=== PATIENT | female | born 1965 | race Caucasian/White ===

== ENCOUNTER → 2017-11-20 10:37 | Outpatient (CLI) | payer OTHER, SELFPAY ==
--- NOTE | 2017-11-20 10:40 | STE_ITS ---
Reason For Study: ATYPICAL CHEST PAIN Stress Results Protocol: Jairon Protocol Maximum Predicted HR: 168 bpm Target HR: 143 bpm% Max imum Predicted HR: 96 % DurationHeart Rate Stage (mm:ss) (bpm) BP BASELINE 56 108/70 STAGE 1 3:00 11 4 120/82 STAGE 2 3:00 12 9 140/80 STAGE 3 3:00 16 2 160/82 RECOVERY 79 98/64 Stress Duration: 9:00 mm:ss Maximum Stress HR: 162 bpm Baseline Echocardiogram Findings The estimated ejection fraction is 60 %. Stress Echo Wall motion Data Resting WMIntermediate WMStress WM Resting Wall Motion Wall Motion Stress No regional wall motion No regional wall motion abnormalities noted. abnormalities noted. EKG Data Normal intervals are noted. The patient exercised according to the regular Jairon protocol for a total duration of 9:00. The maximum heart rate attained was 162 beats per minute. This was 96% of maximum predicted heart rate. The patient exercised into stage 3 of the Jairon protocol. During stress, there were no ST or T wave changes noted to suggest ischemia. No clinical angina was noted. No arrhythmias noted. Interpretation Summary Normal adequate treadmill echocardiogram. Negative for ischemia by EKG and echocardiographic criteria. No anginal symptoms noted. No arrhythmias noted. Average exercise capacity for age. Normal blood pressure response to exercise. Test terminated due to the attainment of target heart rate. No complications. Final LVEF of 70%. Ordering Physician: Clif Valverde Referring Physician: Clif Valverde Performed By: Malgorzata Darden, DOUG, RVT
--- NOTE | 2017-11-20 17:09 | STRESSREP ---
Stress Test Report Normal EKG report: Resting EKG: Normal sinus rhythm,/sinus bradycardia, normal axis, normal intervals, no evidence of previous myocardial infarction. Treadmill EKG patient exercised according to a Jairon protocol for 9 minutes and 1 second achieving a maximum workload of 10.4 0 METS. Resting heart rate was initially 57 beats a minute and jelly to maximum 162 beats a minute which represents 96% of the maximal age-predicted heart rate. Resting blood pressure was 108/70, and jelly to maximum 160/82. Test was terminated due to the attainment of target heart rate. During exercise patient's heart rate increased as expected. She had no dynamic EKG changes to suggest ischemia. No arrhythmias noted. Conclusions: Normal adequate treadmill EKG. Negative for ischemia by EKG criteria. No anginal symptoms noted. No arrhythmias noted. Average exercise capacity for age. Normal blood pressure response to exercise. Test terminated due to the attainment of target heart rate. No complications.
== END ==
PROVIDERS: Family Provider Family Medicine; PCP Family Medicine; Visit Provider Family Medicine
DX: R07.89 Other chest pain (principal)
CPT/HCPCS: 93017; 93350

== ENCOUNTER 2018-03-01 19:27 | Emergency (ER) | payer OTHER, SELFPAY ==
[2018-03-01 19:28] VITALS: BP 133/77; PULSE 91; RESP 16; TEMP 36.4; O2SAT 96; BMI 30.1
--- NOTE | 2018-03-01 19:54 | ED.DCSUM_ITS ---
- ER Visit Summary Date of Service: 03/01/18 Chief Complaint: Nausea and vomiting History of Present Illness: The patient is a 53 F with no medical problems who presents for nausea and vomiting since yesterday. Patient states she cooked a pesto pizza that her and her daughter ate. During the night both of them became ill, her daughter having diarrhea and vomiting, and the patient having vomiting only. Patient states her daughter is feeling better, however patient' s symptoms have not subsided at all. She is having frequent emesis, myalgias, headache, and diffuse abdominal pain. She denies any diarrhea or bowel movement since symptom onset, but states she does not normally have a bowel movement every day. She is passing flatus. Denies fever, chest pain, shortness of breath, cough, congestion. Son returned from [place] last Sunday and had vomiting and diarrhea illness that resolved shortly after he returned. Physical Examination: Vital signs: afebrile, hemodynamically stable, no hypoxia on room air General: well nourished, well developed, sitting in bed in no distress Skin: warm, dry, no rash, no pallor, no jaundice HEENT: normocephalic and atraumatic; PERRL, EOMI, moist mucous membranes Cardiovascular: regular rate and rhythm without murmurs, no peripheral edema, 2 + pulses all distal extremities Respiratory: No increased work of breathing, lungs are clear to auscultation bilaterally, no rales, rhonchi or wheezing Abdominal: Abdomen is soft, nontender with normoactive bowel sounds, no guarding or rebound, no masses MSK: Moves all extremities, no deformities, normal strength Neuro: Awake and alert, oriented ?4. No facial droop, sensation and motor function intact and symmetric Test Results: Abnormal Lab Results 03/01/18 03/01/18 03/01/18 20:00 20:00 20:00 WBC 6.3 RBC 4.93 Hgb 14.3 Hct 43.7 MCV 88.6 MCH 29.0 MCHC 32.7 RDW 13.7 RDW Differential 44.0 H Plt Count 108 L MPV 10.5 Immature Gran % (Auto) 0.300 Neut % (Auto) 91.6 H Lymph % (Auto) 3.8 L [place] % (Auto) 3.8 Eos % (Auto) 0.3 Baso % (Auto) 0.2 Absolute Neuts (auto) 5.8 Absolute Lymphs (auto) 0.24 L Total Counted Not Reportable Differential Comment SEE COMMENT Platelet Estimate SLT DEC Anisocytosis RARE Sodium 140 Potassium 3.0 L Chloride 107 Carbon Dioxide 24.0 Anion Gap 9 BUN 9 Creatinine 0.82 Estim Creat Clear Calc 65.63 Est GFR (MDRD) Af Amer 93 Est GFR (MDRD) Non-Af 77 BUN/Creatinine Ratio 10.9 Glucose 119 H Lactic Acid 1.2 Calcium 8.2 L Total Bilirubin 0.50 AST 17 ALT 28 Alkaline Phosphatase 43 L Total Protein 7.2 Albumin 3.7 Globulin 3.5 Albumin/Globulin Ratio 1.1 Lipase 101 Urine Color Urine Clarity Urine pH Ur Specific [place] Urine Protein Urine Glucose (UA) Urine Ketones Urine Occult Blood Urine Nitrite Urine Bilirubin Urine Urobilinogen Ur Leukocyte Esterase Urine RBC Urine WBC Ur Squamous Epith Cells Urine Bacteria Urine Mucus 03/01/18 20:55 WBC RBC Hgb Hct MCV MCH MCHC RDW RDW Differential Plt Count MPV Immature Gran % (Auto) Neut % (Auto) Lymph % (Auto) [place] % (Auto) Eos % (Auto) Baso % (Auto) Absolute Neuts (auto) Absolute Lymphs (auto) Total Counted Differential Comment Platelet Estimate Anisocytosis Sodium Potassium Chloride Carbon Dioxide Anion Gap BUN Creatinine Estim Creat Clear Calc Est GFR (MDRD) Af Amer Est GFR (MDRD) Non-Af BUN/Creatinine Ratio Glucose Lactic Acid Calcium Total Bilirubin AST ALT Alkaline Phosphatase Total Protein Albumin Globulin Albumin/Globulin Ratio Lipase Urine Color Yellow Urine Clarity Sl. Cloudy Urine pH 6.5 Ur Specific [place] 1.010 Urine Protein Negative Urine Glucose (UA) Normal Urine Ketones Negative Urine Occult Blood 10 H Urine Nitrite Negative Urine Bilirubin Negative Urine Urobilinogen Normal Ur Leukocyte Esterase Negative Urine RBC 0-5 SEEN Urine WBC 0-5 SEEN Ur Squamous Epith Cells 0-5 SEEN Urine Bacteria RARE Urine Mucus 0 SEEN Emergency Department Course and Treatment: Patient was given IV fluids for hydration, Zofran for nausea, and Toradol for her aches and headache. CDC website was reviewed to see if any alerts for communicable diseases that her son may have brought home and none noted that match the patient's symptoms. Labs were performed showing no electrolyte derangements, renal dysfunction, no hepatic derangements. Urine was negative for infection. CBC showed no leukocytosis but did show mild thrombocytopenia and lymphopenia, which may be due to temporary suppression secondary to a viral infection. Patient felt much better after treatment and was ready to be discharged. We discussed the results of her blood work and that she should follow-up with her PCP in 1 week for another evaluation and to discuss whether she needs repeat blood testing to make sure her white counts and platelet count to return to normal. Patient agreed with this plan. She was given prescription for Zofran and discharged home. Treatment Plan: [] Disposition: [] Impression: gastroenteritis, suspect viral syndrome; lymphopenia This note was generated with [employer] dictation software. It may contain incorrect words, spelling, and punctuation that were not noted in review of the chart prior to signing ED Disposition - Plan for ED Patient: Disposition: Home or Assisted Living Chief Complaint: Nausea/Vomiting/Diarrhea Instructions: ED Gastroenteritis Viral Prescriptions: Ondansetron [Zofran Odt] 4 mg PO Q8H PRN PRN #15 tab PRN Reason: Nausea Referrals: Clif Valverde MD [Primary Care Provider] - 3-5 Days if not improving Additional Instructions: Please drink plenty of fluids to stay hydrated. Gatorade or Powerade are good choices while you are having difficulty keeping food down. You may use the Zofran for nausea. Use [id number] pain medication such as ibuprofen or Tylenol for aches and pains. These follow-up with your doctor in 1 week for a discussion and possible reevaluation of your white blood cell count. You had low lymphocytes (a type of white blood cell) today, which may be because of your current infection. Talk to your doctor about whether you need any further workup for this finding. If you have any worsening of your condition or any new concerning symptoms, please return immediately to the emergency department for another evaluation.
[2018-03-01] MEDS: Ketorolac 30 MG/ML Syringe 15 MG IV (20:11)
[2018-03-01] MEDS: 0.9% Normal Saline 1,000 ML 1000 ML IV (20:11)
[2018-03-01] MEDS: Ondansetron 4 MG/2 ML Vial IV (20:11)
[2018-03-01 20:14] VITALS: RESP 16
[2018-03-01 20:22] LABS: Absolute Lymphocyte Count 0.24 X10^3/ul (0.83-4.51); Absolute Neutrophil Count 5.8 X10^3/uL (2.0-7.7); Basophil# 0.01 X10^3/uL; Basophil% 0.2 % (0-1); Eosinophil# 0.02 X10^3/uL; Eosinophils% 0.3 % (0-5); Hematocrit 43.7 % (37-47); Hemoglobin 14.3 g/dl (12.0-15.0); Lymphocyte # 0.24 X10^3/ul (4.0); Lymphocyte % 3.8 % (19-41); Mean Corp Hgb Conc 32.7 g/gl (32-36); Mean Corpuscular Volume 88.6 fL (81-99); Mean Platelet Vol. 10.5 fl (6.2-12.0); Monocyte# 0.24 X10^3/uL; Monocyte% 3.8 % (0-10); Neutrophil % 91.6 % (47-70); Platelet Count 108 K/mm3 (150-450); RBC Distribution Width CV 13.7 % (11.6-14.6); Red Blood Count 4.93 M/mm3 (4.2-5.4); White Blood Count 6.3 K/mm3 (4.4-11.0)
[2018-03-01 20:41] LABS: ALB/GLOB Ratio 1.1 RATIO (0.9-2.4); AST(SGOT) 17 U/L (15-37); Alanine Aminotransfer ALT/SGPT 28 U/L (13-56); Albumin, Serum 3.7 g/dL (3.2-5.0); Alkaline Phosphatase 43 U/L (45-117); Anion Gap 9 (5-15); BUN 9 mg/dL (7-18); BUN/Creat Ratio 10.9 RATIO (10-20); Calcium,Total 8.2 mg/dL (8.5-10.1); Chloride 107 mmol/L (98-107); Creatinine, Serum 0.82 mg/dL (0.55-1.02); EST Glomerular Filtration Rate 77 mL/min (>60); Est Glom Filt Rate - Afr Amer 93 mL/min (>60); Estimated Creatinine Clearance 65.63 ml/min; Globulin 3.5 g/dL (2.2-4.2); Glucose 119 mg/dL (74-106); Lactic Acid 1.2 mmol/L (0.4-2.0); Lipase 101 U/L (73-393); Protein, Total 7.2 g/dL (6.4-8.2); Sodium Level 140 mmol/L (136-145)
[2018-03-01 21:11] LABS: Mucous, Urine 0 SEEN /hpf (<or=2+)
[2018-03-01 21:12] LABS: Differential Indicated SCAN CRITERIA MET; POSITIVE COUNT NO; POSITIVE DIFFERENTIAL YES; POSITIVE MORPHOLOGY NO
[2018-03-01 21:14] LABS: Platelet Estimate SLT DEC (ADEQ)
[2018-03-01 21:14] LABS: Color, Urine Yellow (Yellow); Glucose, Dipstick Normal (Normal); Ketone-Dipstick Negative (Negative); Leukocyte Esterase-Dipstick Negative /ul (Negative); Nitrite-Dipstick Negative (Negative); Occult Blood-Urine 10 /ul (Negative); Protein-Dipstick Negative (Negative); Urine Bilirubin Dipstick Negative (Negative); Urine Clarity Sl. Cloudy (Clear); Urine Urobilinogen Normal (Normal); Urine pH 6.5 (5.0 - 8.0)
[2018-03-01 21:15] LABS: Anisocytosis RARE
[2018-03-01 21:20] LABS: Squamous Epithelial Cells - UA 0-5 SEEN /hpf (5-10)
[2018-03-01 21:22] LABS: White Blood Cells 0-5 SEEN /hpf (0-5)
[2018-03-01 21:23] LABS: Bacteria RARE /hpf (None Seen); Red Blood Cells-Urine 0-5 SEEN /hpf (0-5)
--- NOTE | 2018-03-01 21:46 | ED.DEP ---
ED Disposition - Plan for ED Patient: Disposition: Home or Assisted Living Chief Complaint: Nausea/Vomiting/Diarrhea Instructions: ED Gastroenteritis Viral Prescriptions: Ondansetron [Zofran Odt] 4 mg PO Q8H PRN PRN #15 tab PRN Reason: Nausea Referrals: Clif Valverde MD [Primary Care Provider] - 3-5 Days if not improving Additional Instructions: Please drink plenty of fluids to stay hydrated. Gatorade or Powerade are good choices while you are having difficulty keeping food down. You may use the Zofran for nausea. Use [id number]-utbchmi pain medication such as ibuprofen or Tylenol for aches and pains. These follow-up with your doctor in 1 week for a discussion and possible reevaluation of your white blood cell count. You had low lymphocytes (a type of white blood cell) today, which may be because of your current infection. Talk to your doctor about whether you need any further workup for this finding. If you have any worsening of your condition or any new concerning symptoms, please return immediately to the emergency department for another evaluation.
--- NOTE | 2018-03-01 21:49 | DCINST.ED_ITS ---
ED Disposition - Plan for ED Patient: Disposition: Home or Assisted Living Chief Complaint: Nausea/Vomiting/Diarrhea Instructions: ED Gastroenteritis Viral Prescriptions: Ondansetron [Zofran Odt] 4 mg PO Q8H PRN PRN #15 tab PRN Reason: Nausea Referrals: Clif Valverde MD [Primary Care Provider] - 3-5 Days if not improving Additional Instructions: Please drink plenty of fluids to stay hydrated. Gatorade or Powerade are good choices while you are having difficulty keeping food down. You may use the Zofran for nausea. Use [id number]-ibowypb pain medication such as ibuprofen or Tylenol for aches and pains. These follow-up with your doctor in 1 week for a discussion and possible reevaluation of your white blood cell count. You had low lymphocytes (a type of white blood cell) today, which may be because of your current infection. Talk to your doctor about whether you need any further workup for this finding. If you have any worsening of your condition or any new concerning symptoms, please return immediately to the emergency department for another evaluation.
[2018-03-01 22:01] VITALS: BP 128/76; PULSE 85; RESP 16; O2SAT 98
== END 2018-03-01 22:04 | disposition home or self-care (01) ==
PROVIDERS: Emergency Provider Emergency Medicine; Family Provider Family Medicine; PCP Family Medicine
DX: K52.9 Noninfective gastroenteritis and colitis, unspecified (principal); D72.810 Lymphocytopenia
CPT/HCPCS: 80053; 81001; 83605; 83690; 85025; 87086; 87088; 96361; 96374; 96375; 99283; J7030; A4216; J2405

== ENCOUNTER → 2018-08-28 10:49 | Outpatient (CLI) | payer OTHER, SELFPAY ==
--- NOTE | 2018-08-28 10:53 | BI_ITS ---
MAMMOGRAPHY - BILATERAL SCREENING REASON FOR EXAM: Female, 53 years old. Routine annual screening examination. PERTINENT HISTORY: Non-contributory. TECHNIQUE: Digital bilateral breast julien (3D mammographic acquisition) in the CC and MLO projections. 2-D mediolateral oblique (MLO) and craniocaudad (CC) views of both breasts were obtained. CAD: Full Field Digital Mammography with Computer Added Detection was performed. COMPARISON: Comparison is made with prior study dated July 17, 2017 and July 12, 2016. FINDINGS: Breast Composition: The breasts are heterogeneously dense, which may obscure small masses. There are no dominant masses or suspicious calcifications. Stable small bilateral axillary lymph nodes. No other significant abnormalities are identified. There has been no significant change since the prior study. BI/SCREENING MAMM (CAD), BILAT IMPRESSION: Stable bilateral screening mammogram. Yearly follow-up mammogram recommended. (A) ASSESSMENT CATEGORY: BIRADS Category 2: Benign. A letter regarding these results will be sent to the patient by the facility within 30 days. Approximately 10% of breast cancers are not detected by mammography. A normal mammogram should not delay biopsy of a clinically suspicious abnormality. [id number] Electronically Signed: Jona Duque MD at 13:27 EST Tel [phone], Service support ,
--- OUTSIDE RECORDS SUMMARY | 2018-10-14 12:53 | XMS RPT_ITS ---
:1965 Author Organization OHIP Care Team Providers Name Role Phone TAWNY CHRISTIAN Attending Unavailable Valverde, Clif Primary Care Unavailable TAWNY CHRISTIAN Consulting Unavailable ValverdeClif Referring Unavailable Valverde, Clif Primary Care Unavailable Valverde Clif Attending Unavailable Valverde Clif Attending Unavailable Valverde, Clif Referring Unavailable Valverde, Clif Primary Care Unavailable Foster Nolasco Attending Unavailable Valverde, Clif Referring Unavailable Foster Nolasco Attending Unavailable Valverde, Clif Referring Unavailable Foster Jewell Attending Unavailable Valverde, Clif Referring Unavailable Valverde, Clif Primary Care Unavailable Krysta Flores Attending Unavailable Crystal Bustamante Attending Unavailable Clif Valverde Referring Unavailable PROBLEMS PROBLEMS DATE TYPE CONDITION / CODE ATTENDING STATUS SOURCE 12/19/2017 Unknown R07.9 - Chest Foster Nolasco Active [place] pain, unspecified Community / R07.9(ICD-10) Hospital Repository PROCEDURES PROCEDURES No Procedure Records FoundRESULTS RESULTS SURGERY VISIT REPORT Observed: 09/26/2018 Status: F Source: [place] 4:45 PM [facility] [place] [facility] [address] [place] [address] OFFICE VISIT Date of Service: 09/26/18 MR#: [id number] Acct: [id number] Name: AMANDA VOGEL Rep #: [id number] : 1965 Provider: Foster Jewell MD Age/Sex: 53/F Location: [facility] Status: Signed Intake Vital Signs09/26/18 Body Mass Index (BMI) 30.1 09/26/18 Height 5 ft 3 in 09/26/18 Weight: 179 lb Intake Visit Reasons: Symptomatic cholelithiasis [facility] 09/05 [employer] Required: No Is patient in pain?: No Allergies No Known Allergies Allergy (Verified 09/26/18 14:00) Medications Ondansetron [Zofran Odt] 4 mg PO Q8H PRN PRN #15 tab 03/01/18 [Rx Confirmed 09/26/18] PFSH Medical History Abdominal pain (Acute) Cholelithiasis (Acute) Surgical History History of vein stripping (Acute) Family History Father Heart disease Social History Smoking Status: Never smoker alcohol intake: current alcohol intake frequency: a few times a month substance use type: does not use HPI HPI HPI: AMANDA VOGEL is a 53 F who presents to the office today for symptomatic cholelithiasis. Patient has been having upper abdominal pain over the last several months. The pain is mostly in the epigastric abdominal area with some going into both the right and left upper quadrants. She describes it as colicky and crampy. She has had some associated diarrhea. Her symptoms have been intermittent. Her symptoms have been exacerbated by eating some nuts and seeds as well as milk. She has never had any fever or anorexia. Gallbladder ultrasound was performed showing a normal distended gallbladder. The gallbladder wall measured 2.4 mm. There was a negative sonographic Dean sign. There was no pericholecystic fluid. Multiple calculi were identified within the gallbladder. Her common bile duct measured 4.3 mm ROS General General: No weight change, appetite, fatigue, colon cancer, breast cancer or weakness HEENT HEENT: No difficulty swallowing, eye injury, eye surgery, swollen glands or hoarseness Endo Endocrine: No thyroid disease, diabetes mellitus, thyroid cancer, Hair loss, heat intolerance or cold intolerance Skin Skin: No rash or changing moles Breast Breast: No left breast lump, right breast lump, nipple discharge, breast pain, abnormal mammogram, abnormal US or breast enlargement Musc Musculoskeletal: No back problems, arthritis, rheumatoid arthritis, gout or joint pain Cardio Cardiovascular: No murmur, pacemaker, heart disease, atrial fibrillation, high blood pressure, heart attack, heart stent, palpitations, shortness of breat with exertion or chest pain Psych Psychiatric: No depression, anxiety or hearing voices Resp Respiratory: No shortness of breath, No sleep apnea, No cough, No COPD, No asthma, No emphysema, No wheezing Gastro Gastrointestinal: Yes abdominal pain, No nausea or vomiting, No diarrhea, No constipation, No blood in stool, No acid reflux, No hemorrhoids, No ulcers, Yes gallbladder problem, No black,tarry stools Vasquez Hematologic: No blood thinners, No blood disorders, No bleeding, No anemia, Yes blood clots Neuro Neurologic: No system reviewed and no additional complaints, except as docu, No as per HPI, No abnormal walking, No abnormal hearing, No abnormal movements, No abnormal speech, No behavioral changes, No burning sensations, No confusion, No seizure-like activity, No unsteadiness, No dizziness, No localized weakness, No frequent falls, No headache(s), No lack of coordination, No loss of vision, No memory loss, No numbness, No other visual disturbances, No radiating pain, No restless legs, No sensory deficit, No fainting, No tingling, No tremor(s), No weakness, No other Exam Const General: well developed, no acute distress, well hydrated Orientation: oriented to person, oriented to place, oriented to time [facility] Head: normocephalic, atraumatic Ears: external ears normal Mouth: moist mucous membranes Eyes Sclera: sclerae normal Pupils: normal by confrontation Neck Neck: no lymphadenopathy noted Neck mass: No Thyroid: symmetrical, thyroid normal Chest Chest palpation AND inspection: normal inspection of the chest Breast Palpation: No nipple discharge Resp Effort AND Inspection: normal respiratory effort Auscultation: clear to auscultation bilaterally Percussion: percussion normal Cardio Rate: regular rate Rhythm: regular rhythm Heart Sounds: no murmurs GI Palpation: soft, no masses, no hepatosplenomegaly, nontender Rectal Exam: other Other: Rectal exam deferred. Extrem General: no clubbing, cyanosis or edema, normal to inspection Assessment AND Plan Problems 1. Calculus of gallbladder with chronic cholecystitis without obstruction K80.10 Plan Reviewed the anatomy with the patient and discussed the procedure: laparoscopic cholecystectomy with possible cholangiograms, possible open. Review risks including but not limited to bleeding, infection, hernia, bile leak, retained gallstones requiring another procedure ERCP- Endoscopic Retrograde Cholangiopancreatography, injury to another organ (bile ducts, common bile duct, small bowel, etc.) and conversion to an open procedure. All questions were answered. Coding Level of Care Code Off vis,new,level 3 Diagnoses Calculus of gallbladder with chronic cholecystitis without obstruction K80.10 Cholelithiasis location: gallbladder Cholecystitis acuity: chronic 09/26/18 1645 <Electronically signed by Foster Jewell MD> Date Foster Jewell MD Cosigner Signature: Date (if applicable) CC: Clif Valverde MD ABDOMEN LIMITED Observed: 09/05/2018 Status: F Source: [place] 7:55 AM [facility] [place] [facility] Imaging Services [address] [place] [address] Abdomen Limited MR#: [id number] Acct: [id number] Name: AMANDA VOGEL Rep #: [id number] : 1965 F 53 From: Isai Goel MD PCP: Clif Valverde MD Status: REG CLI Study: Abdomen Limited Date of Exam: 09/05/18 Exam# [id number] Ordering Dr: Clif Valverde MD STUDY: ABDOMINAL ULTRASOUND - RIGHT UPPER QUADRANT REASON FOR VISIT: Female, 53 years old. Upper abdominal pain. TECHNIQUE: Ultrasound evaluation of the right upper quadrant was performed with real-time and static chua-scale imaging. TECHNICAL QUALITY: Adequate. COMPARISON: None. FINDINGS: Liver: The liver measures 14.3 cm. There is normal echogenicity of the liver. The bile ducts are within normal limits. There is hepatic color flow. The direction of portal flow is hepatopetal. There is no demonstrated mass lesion. Gallbladder: Normal distended gallbladder. The gallbladder wall measures 2.4 mm. There is a negative sonographic Dean's sign. There is no pericholecystic fluid. Multiple echogenic shadowing calculi largely filling the gallbladder. Common Bile Duct (C.B.D.): The common bile duct measures 4.3 mm. Pancreas: Normal size of the head, body and tail of the pancreas. There is normal echogenicity of the pancreas. There is no demonstrated pancreatic mass or cyst. Right Kidney: Normal size of the right kidney. The right kidney measures 10.3 cm. Normal echotexture of the renal cortex. The right cortex measures 0.9 cm. There is no demonstrated renal mass or cyst. There is no right hydronephrosis. US/Abdomen Limited IMPRESSION: Cholelithiasis without secondary sonographic features of acute cholecystitis. The gallbladder is fairly packed with gallstones. Electronically Signed: Isai Goel MD at 16:33 EST Tel , Service support , CC: Clif Valverde MD Research Home Economist: Signed SCREENING MAMM (CAD), Observed: 08/28/2018 Status: F Source: [place] 10:53 AM [facility] [place] [facility] Imaging Services [address] [place] [address] SCREENING MAMM (CAD), BILAT MR#: [id number] Acct: [id number] Name: AMANDA VOGEL Rep #: [id number] : 1965 F 53 From: Jona Duque MD PCP: Clif Valverde MD Status: [facility] Study: SCREENING MAMM (CAD), BILAT Date of Exam: 08/28/18 Exam# [id number] Ordering Dr: SHILPI ORTIZ MAMMOGRAPHY - BILATERAL SCREENING REASON FOR EXAM: Female, 53 years old. Routine annual screening examination. PERTINENT HISTORY: Non-contributory. TECHNIQUE: Digital bilateral breast julien (3D mammographic acquisition) in the CC and MLO projections. 2-D mediolateral oblique (MLO) and craniocaudad (CC) views of both breasts were obtained. CAD: Full Field Digital Mammography with Computer Added Detection was performed. COMPARISON: Comparison is made with prior study dated July 17, 2017 and July 12, 2016. FINDINGS: Breast Composition: The breasts are heterogeneously dense, which may obscure small masses. There are no dominant masses or suspicious calcifications. Stable small bilateral axillary lymph nodes. No other significant abnormalities are identified. There has been no significant change since the prior study. BI/SCREENING MAMM (CAD), BILAT IMPRESSION: Stable bilateral screening mammogram. Yearly follow-up mammogram recommended. (A) ASSESSMENT CATEGORY: BIRADS Category 2: Benign. A letter regarding these results will be sent to the patient by the facility within 30 days. Approximately 10% of breast cancers are not detected by mammography. A normal mammogram should not delay biopsy of a clinically suspicious abnormality. [id number] Electronically Signed: Jona Duque MD at 13:27 EST Tel [phone], Service support , CC: SHILPI ORTIZ; Clif Valverde MD Research Home Economist: Signed OFFICE VISIT REPORT Observed: 07/22/2018 Status: F Source: [place] 2:55 PM [facility] [place] [facility] [facility] [address] [address] OFFICE VISIT Date of Service: 06/27/18 MR#: [id number] Acct: [id number] Patient: AMANDA VOGEL Rep #: [id number] : 1965 Provider: Crystal Bustamante Age/Sex: 53/F Location: [facility] Status: Signed Intake Intake Visit Reasons: FLU SHOT Allergies No Known Allergies Allergy (Verified 03/01/18 19:29) Medications Ondansetron [Zofran Odt] 4 mg PO Q8H PRN PRN #15 tab 03/01/18 [Rx] Office Meds Flucelvax Quad 6620-2923 (PF) Performing Provider: TANIKA Luna Administered by: Crystal Bustamante on 06/27/18 17:58 Dose Route Admin Location Lot Number Expiration Date NDC Lens Inserter 0.5 mL IM left delt [id number] 03/16/19 09901-787-90 SEQIRUS Assessment AND Plan Orders Orders: Medications Discontinued: Flucelvax Quad 3209-0248 (PF) (flu vac qs 2017(4 yr up)CD(P0.5 mL IM ONCE 1 mL 0RF NS Z23 F)) Discontinued Reason: Office Medication has been Doc umented as given 07/22/18 0405 <Electronically signed by Dylon SAGASTUME> Date Dylon SAGASTUME Cosigner Signature: Date (if applicable) CC: EMERGENCY DEPARTMENT Observed: 03/01/2018 Status: F Source: [place] SUMMARY 10:25 PM [facility] [place] [facility] [facility] Medical Records Department [address] [place] [address] Emergency Department Summary 03/01/181951 MR#: [id number] Acct: [id number] Name: AMANDA VOGEL Rep #: [id number] : 1965 53 From: Krysta Flores MD PCP: Clif Valverde MD Status: DEP ER - ER Visit Summary Date of Service: 03/01/18 Chief Complaint: Nausea and vomiting History of Present Illness: The patient is a 53 F with no medical problems who presents for nausea and vomiting since yesterday. Patient states she cooked a pesto pizza that her and her daughter ate. During the night both of them became ill, her daughter having diarrhea and vomiting, and the patient having vomiting only. Patient states her daughter is feeling better, however patient's symptoms have not subsided at all. She is having frequent emesis, myalgias, headache, and diffuse abdominal pain. She denies any diarrhea or bowel movement since symptom onset, but states she does not normally have a bowel movement every day. She is passing flatus. Denies fever, chest pain, shortness of breath, cough, congestion. Son returned from [place] last Sunday and had vomiting and diarrhea illness that resolved shortly after he returned. Physical Examination: Vital signs: afebrile, hemodynamically stable, no hypoxia on room air General: well nourished, well developed, sitting in bed in no distress Skin: warm, dry, no rash, no pallor, no jaundice HEENT: normocephalic and atraumatic; PERRL, EOMI, moist mucous membranes Cardiovascular: regular rate and rhythm without murmurs, no peripheral edema, 2+ pulses all distal extremities Respiratory: No increased work of breathing, lungs are clear to auscultation bilaterally, no rales, rhonchi or wheezing Abdominal: Abdomen is soft, nontender with normoactive bowel sounds, no guarding or rebound, no masses MSK: Moves all extremities, no deformities, normal strength Neuro: Awake and alert, oriented 4. No facial droop, sensation and motor function intact and symmetric Test Results: Abnormal Lab Results WBC RBC Hgb Hct MCV MCH MCHC RDW RDW Differential Plt Count MPV Immature Gran % (Auto) Neut % (Auto) Emergency Department Course and Treatment: Patient was given IV fluids for hydration, Zofran for nausea, and Toradol for her aches and headache. [facility] website was reviewed to see if any alerts for communicable diseases that her son may have brought home and none noted that match the patient's symptoms. Labs were performed showing no electrolyte derangements, renal dysfunction, no hepatic derangements. Urine was negative for infection. CBC showed no leukocytosis but did show mild thrombocytopenia and lymphopenia, which may be due to temporary suppression secondary to a viral infection. Patient felt much better after treatment and was ready to be discharged. We discussed the results of her blood work and that she should follow-up with her PCP in 1 week for another evaluation and to discuss whether she needs repeat blood testing to make sure her white counts and platelet count to return to normal. Patient agreed with this plan. She was given prescription for Zofran and discharged home. Treatment Plan: [] Disposition: [] Impression: gastroenteritis, suspect viral syndrome; lymphopenia This note was generated with Impact D[employer]en dictation software. It may contain incorrect words, spelling, and punctuation that were not noted in review of the chart prior to signing ED Disposition - Plan for ED Patient: Disposition: Home or Assisted Living Chief Complaint: Nausea/Vomiting/Diarrhea Instructions: ED Gastroenteritis Viral Prescriptions: Ondansetron [Zofran Odt] 4 mg PO Q8H PRN PRN #15 tab PRN Reason: Nausea Referrals: Clif Valverde MD [Primary Care Provider] - 3-5 Days if not improving Additional Instructions: Please drink plenty of fluids to stay hydrated. Gatorade or Powerade are good choices while you are having difficulty keeping food down. You may use the Zofran for nausea. Use uckw-iqc-hccylye pain medication such as ibuprofen or Tylenol for aches and pains. These follow-up with your doctor in 1 week for a discussion and possible reevaluation of your white blood cell count. You had low lymphocytes (a type of white blood cell) today, which may be because of your current infection. Talk to your doctor about whether you need any further workup for this finding. If you have any worsening of your condition or any new concerning symptoms, please return immediately to the emergency department for another evaluation. What to do if you have Problems For any increased pain, shortness of breath, bleeding, nausea or vomiting, chest pain, or any unexpected problems, contact your Primary Care Provider. Call [facility] ([phone]) or report to the closest Emergency Room. Call 911 if necessary. 03/01/182224 <Electronically signed by Krysta Flores MD> Date Krysta Flores MD Cosigner Signature (If Indicated): Date CC: Clif Valverde MD DISCHARGE INSTRUCTION Observed: 03/01/2018 Status: F Source: [place] 10:19 PM [facility] [place] [facility] Medical Records Department [address] [place] [address] Discharge Instruction 03/01/18 2146 MR#: [id number] Acct: [id number] Name: AMANDA VOGEL Rep #: [id number] : 1965 53 From: Krysta Flores MD PCP: Clif Valverde MD Status: DEP ER ED Disposition - Plan for ED Patient: Disposition: Home or Assisted Living Chief Complaint: Nausea/Vomiting/Diarrhea Instructions: ED Gastroenteritis Viral Prescriptions: Ondansetron [Zofran Odt] 4 mg PO Q8H PRN PRN #15 tab PRN Reason: Nausea Referrals: Clif Valverde MD [Primary Care Provider] - 3-5 Days if not improving Additional Instructions: Please drink plenty of fluids to stay hydrated. Gatorade or Powerade are good choices while you are having difficulty keeping food down. You may use the Zofran for nausea. Use gzdb-mwt-gfflfjg pain medication such as ibuprofen or Tylenol for aches and pains. These follow-up with your doctor in 1 week for a discussion and possible reevaluation of your white blood cell count. You had low lymphocytes (a type of white blood cell) today, which may be because of your current infection. Talk to your doctor about whether you need any further workup for this finding. If you have any worsening of your condition or any new concerning symptoms, please return immediately to the emergency department for another evaluation. What to do if you have Problems For any increased pain, shortness of breath, bleeding, nausea or vomiting, chest pain, or any unexpected problems, contact your Primary Care Provider. Call [facility] ([phone]) or report to the closest Emergency Room. Call 911 if necessary. 03/01/18 2578 <Electronically signed by Krysta Flores MD> Date Krysta Flores MD Cosigner Signature (If Indicated): Date CC: Clif Valverde MD URINALYSIS, COMPLETE Collected: 03/01/2018 Status: F Source: [place] 8:55 PM [facility] [place] [facility] Order Comment: Order Date: 03/01/18 Has pt arrived? Y How was Urine Obtained? CLEAN CATCH TYPE CODE TESTS RESULT OUT OF RANGE REFERENCE UNITS LAB L400.3000 Yellow COLOR Normal Yellow LAB L400.3050 Clear Normal CLARITY Sl. Cloudy LAB L400.3200 Normal mg/dl Normal GLUCOSE, UR Normal LAB L400.3300 Negative mg/dL Normal BILIRUBIN URINE Negative LAB L400.3400 Negative mg/dl Normal KETONE UR Negative LAB L400.3465 1.002-1.030 Normal SP.GR. DIPSTX 1.010 LAB L400.3550 5.0 - 8.0 pH UR Normal 6.5 LAB L400.3600 Negative mg/dl PROT Normal DIPSTX Negative LAB L400.3700 Normal mg/dl Normal UROBILI Normal LAB L400.3750 Negative Normal NITRITE UR Negative LAB L400.3780 Negative /ul High 10 OCCULT BLOOD-UR LAB L400.3800 Negative /ul LEUK Normal ESTERASE Negative LAB L400.4050 0-5 /hpf WBC Normal 0-5 SEEN LAB L400.4100 0-5 /hpf Normal RBC-UA 0-5 SEEN LAB L400.4150 5-10 /hpf SQUAM Normal EPI 0-5 SEEN LAB L400.4300 None Seen /hpf Normal BACTERIA RARE LAB L400.4350 <or=2+ /hpf 0 Normal MUCUS, URINE SEEN Performed By: #### L400.0001 #### [facility] [address] [place], [address] Observed: 03/01/2018 Status: F Source: [place] CULTURE, URINE 8:55 PM [facility] [place] [facility] Order Date: 03/01/18 Has pt arrived? Y Urine Culture ORGANISM 1: Mixed Gram Positive Organisms [place] Count <1000 MIX CULTURE Mixed contaminants. Submit a new specimen if indicated. Performed By: #### M100.0650 #### [facility] [address] [place], [address] COMPREHENSIVE METABOLIC Collected: 03/01/2018 Status: F Source: [place] PROFIL 8:00 PM [facility] [place] [facility] TYPE CODE TESTS RESULT OUT OF RANGE REFERENCE UNITS LAB L501.0100 74-106 mg/dL High GLU 119 Result Comment: Fasting Glucose result from 100 to 125 mg/dL suggests IMPAIRED HOMEOSTASIS per A.D.A. criteria. Please note revised GLUCOSE reference range effective 2017. LAB L501.1000 7-18 mg/dL Normal BUN 9 LAB L501.1100 0.55-1.02 mg/dL Normal CREAT,SERUM 0.82 Result Comment: The validity of the calculated GFR AND GFRAA in patients over 70 years has not been determined. Clinical correlation is essential. LAB L501.1110 >60 mL/min Normal EST GFR 77 Result Comment: Non- GFR Calc LAB L501.1115 >60 mL/min Normal EST GFR - AA 93 Result Comment: GFR Calc LAB L501.1255 ml/min Normal Estimated CRCL 65.63 LAB L501.1300 10-20 RATIO Normal BUN/CRE 10.9 LAB L501.1500 6.4-8. g/dL Normal 2 T PROT 7.2 LAB L501.1800 3.2-5. g/dL Normal 0 ALB 3.7 LAB L501.1950 2.2-4. g/dL Normal 2 GLOB 3.5 LAB L501.2000 0.9-2. RATIO Normal 4 A/G 1.1 LAB L501.2200 8.5-10 mg/dL Low .1 CA 8.2 LAB L501.4100 15-37 U/L Normal AST 17 LAB L501.4305 45-117 U/L Low ALK P 43 LAB L501.4405 13-56 U/L Normal ALT 28 LAB L501.4600 0.20-1 mg/dL Normal .00 T BILI 0.50 LAB L501.5300 136-14 mmol/L Normal 5 NA 140 LAB L501.5600 3.5-5. mmol/L Low 1 K 3.0 LAB L501.5900 98-107 mmol/L Normal CL 107 LAB L501.6100 21.0-3 mmol/L Normal 2.0 CO2 24.0 LAB L501.6200 5-15 Normal GAP 9 Performed By: #### L500.4050, L501.2450 #### [facility] [address] [place], [address] LIPASE Collected: 03/01/2018 Status: F Source: [place] 8:00 PM [facility] [place] [facility] TYPE CODE TESTS RESULT OUT OF RANGE REFERENCE UNITS LAB L501.2450 73-393 U/L Normal LIPASE 101 Performed By: #### L500.4050, L501.2450 #### [facility] [address] [place], [place], [address] LACTIC ACID Collected: 03/01/2018 Status: F Source: [place] 8:00 PM [facility] [place] [facility] Order Comment: Yes/No query for Sepsis Lactate Rule Y TYPE CODE TESTS RESULT OUT OF RANGE REFERENCE UNITS LAB L503.6005 0.4-2.0 mmol/L Normal LACTIC ACID 1.2 Performed By: #### L503.6005 #### [facility] [address] [place], [address] CBC W/DIFF, AUTOMATED Collected: 03/01/2018 Status: F Source: [place] 8:00 PM [facility] [place] [facility] TYPE CODE TESTS RESULT OUT OF RANGE REFERENCE UNITS LAB L100.1000 4.4-11.0 K/mm3 Normal WBC 6.3 LAB L100.1200 4.2-5.4 M/mm3 Normal RBC 4.93 LAB L100.1300 12.0-15.0 g/dl Normal HGB 14.3 LAB L100.1400 37-47 % Normal HCT 43.7 LAB L100.1500 81-99 fL Normal MCV 88.6 LAB L100.1600 27.0-32.0 pg Normal MCH 29.0 LAB L100.1700 32-36 g/gl Normal MCHC 32.7 LAB L100.1810 11.6-14.6 % Normal RDW CV 13.7 LAB L100.1820 35.1-43.9 fl High RDW SD 44.0 LAB L100.1900 150-450 K/mm3 Low PLT 108 LAB L100.2000 6.2-12.0 fl Normal MPV 10.5 LAB L100.2100 47-70 % High NEUT% 91.6 LAB L100.2200 19-41 % Low LY% 3.8 LAB L100.2300 0-10 % Normal MONO% 3.8 LAB L100.2400 0-5 % Normal EO% 0.3 LAB L100.2500 0-1 % Normal BASO% 0.2 LAB L100.2550 0.0-0.9 % Normal IM GRAN % 0.300 Result Comment: IG% - Immature Granulocytes (promyelocytes, myelocytes and metamyelocytes) > 1% indicates that a LEFT SHIFT is Present. LAB L100.2620 2.0-7.7 X10 3/uL Normal Absolute Neut 5.8 LAB L100.2720 0.83-4.51 X10 3/ul Low Absolute Lymph 0.24 LAB L100.4500 Normal SMEAR COMMENT SEE COMMENT Result Comment: LYMPHOPENIA NOTED LAB L100.5500 ADEQ Normal PLT EST SLT DEC LAB L100.7300 Normal ANISO RARE Performed By: #### L100.0100 #### [facility] [address] [facility] [place], [address] STRESS TEST ECHO W/O Observed: 11/28/2017 Status: F Source: [place] [facility] 3:25 PM [facility] [place] [facility] Cardiovascular Services [address] [place] [address] Stress Test Echo w/o Contrast MR#: [id number] Acct: [id number] Name: AMANDA VOGEL Rep #: [id number] : 1965 52 From: Foster Nolasco MD Primary Care: Clif Valverde MD Status: REG CLI Ordering Dr: Clif Valverde MD Sex: F C Reason For Study: ATYPICAL CHEST PAIN Stress Results Protocol: Jairon Protocol Maximum Predicted HR: 168 bpm Target HR: 143 bpm% Max imum Predicted HR: 96 % DurationHeart Rate Stage (mm:ss) (bpm) BP BASELINE 56 108/70 STAGE 1 3:00 11 4 120/82 STAGE 2 3:00 12 9 140/80 STAGE 3 3:00 16 2 160/82 RECOVERY 79 98/64 Stress Duration: 9:00 mm:ss Maximum Stress HR: 162 bpm Baseline Echocardiogram Findings The estimated ejection fraction is 60 %. Stress Echo Wall motion Data Resting WMIntermediate WMStress WM Resting Wall Motion Wall Motion Stress No regional wall motion No regional wall motion abnormalities noted. abnormalities noted. EKG Data Normal intervals are noted. The patient exercised according to the regular Jairon protocol for a total duration of 9:00. The maximum heart rate attained was 162 beats per minute. This was 96% of maximum predicted heart rate. The patient exercised into stage 3 of the Jairon protocol. During stress, there were no ST or T wave changes noted to suggest ischemia. No clinical angina was noted. No arrhythmias noted. Interpretation Summary Normal adequate treadmill echocardiogram. Negative for ischemia by EKG and echocardiographic criteria. No anginal symptoms noted. No arrhythmias noted. Average exercise capacity for age. Normal blood pressure response to exercise. Test terminated due to the attainment of target heart rate. No complications. Final LVEF of 70%. Ordering Physician: Clif Valverde Referring Physician: Clif Valverde Performed By: Malgorzata Darden RDCS, RVT 11/28/17 1524 Date Foster Nolasco MD CC: Clif Valverde MD Date Dictated: 11/20/17 1106 Date Transcribed: 11/28/17 1524 Research Home Economist: Signed STRESS REPORT Observed: 11/20/2017 Status: F Source: [place] 5:11 PM [facility] REPOSITORY [facility] Cardiovascular Services [address] [place] [address] MR#: [id number] Acct: [id number] Name: AMANDA VOGEL Rep #: [id number] : 1965 52 From: Foster Nolasco MD Primary Care: Clif Valverde MD Status: REG CLI Ordering Dr: Sex: F C Stress Test Report Normal EKG report: Resting EKG: Normal sinus rhythm,/sinus bradycardia, normal axis, normal intervals, no evidence of previous myocardial infarction. Treadmill EKG patient exercised according to a Jairon protocol for 9 minutes and 1 second achieving a maximum workload of 10.4 0 METS. Resting heart rate was initially 57 beats a minute and jelly to maximum 162 beats a minute which represents 96% of the maximal age-predicted heart rate. Resting blood pressure was 108/70, and jelly to maximum 160/82. Test was terminated due to the attainment of target heart rate. During exercise patient's heart rate increased as expected. She had no dynamic EKG changes to suggest ischemia. No arrhythmias noted. Conclusions: Normal adequate treadmill EKG. Negative for ischemia by EKG criteria. No anginal symptoms noted. No arrhythmias noted. Average exercise capacity for age. Normal blood pressure response to exercise. Test terminated due to the attainment of target heart rate. No complications. 11/20/17 1711 <Electronically signed by Foster Nolasco MD> Date Foster Nolasco MD CC: Clif Valverde MD Date Dictated: 11/20/171708 Date Transcribed: 11/20/171708 Research Home Economist: Signed ALLERGIES ALLERGIES DATE TYPE / CODE NAME / CODE REACTION SEVERITY SOURCE 09/26/2018 Drug No Known Unknown [facility] Allergy/4160 Allergies/F00 Hospital 58530(SNOMED [id number](RXNOR Repository CT) M) ENCOUNTERS ENCOUNTERS ADMIT/DISCHARGE ACCOUNT ADMITTING ENCOUNTER LOCATION SOURCE NUMBER CLASS 09/26/2018/ [id number] Ambulatory BMSBuilding:B [place] 9 2 MS.W[facility] Repository 09/05/2018 [id number] Ambulatory [place] 9 [facility] ing:US Repository 08/28/2018 [id number] Ambulatory [place] 1 [facility] ing:OPBI Repository 06/27/2018/ [id number] Ambulatory BMSBuilding:B [place] 8 6 MS.[facility] Repository 03/01/2018/ [id number] Emergency Sw[place] Sw[place] 8 1 [facility] ing:ED Repository 11/20/2017 [id number] Ambulatory [place] 9 [facility] ing:[facility] Repository 11/20/2017 [id number] Ambulatory BMSBuilding:W [place] 3 [facility] Repository 11/20/2017 [id number] Ambulatory BMSBuilding:W [place] 5 [facility] Repository PAYERS PAYERS ENCOUNTER GUARANTOR PAYER SUBSCRIBER SOURCE 09/26/2018 AMANDA F Primary Insurance:MED CHRISTOPHER F [place] [id number] [facility] Number: [id number], [place] [id number] Repository 11382Mvq: ([phone]) Date:7705-97-90[phone] () [address]EM[place], [place] [address]BA: CHECK WEBSITE 09/26/2018 Secondary NOT GIVENUNK [place] Insurance:SELF PAY [facility] Number: Effective Repository Date:2018-09-24 09/05/2018 AMANDA F Primary Insurance:MED CHRISTOPHER F Sw[place] [id number] [facility] Number: [id number], [place] [id number] Repository 8[address]Mfe: ([phone]) Date:4044-69-81UH [phone] () [address]486[place]DCQUZWFD, [place] [address]UU: CHECK WEBSITE 09/05/2018 Secondary NOT GIVENUNK [place] Insurance:SELF PAY [facility] Number: Effective Repository Date:2018-08-29 08/28/2018 AMANDA F Primary Insurance:MED CHRISTOPHER F Swisher [id number] [employer] [place]: Community [place] Number: [id number], [place] [id number] Repository 28679Veo: (330) Date:8795-05-37GT [phone] () 91920QXCWNOCFT, [place] [address]UV: CHECK WEBSITE 08/28/2018 Secondary NOT GIVENUNK [place] Insurance:SELF PAY [facility] Number: Effective Repository Date:2018-07-12 06/27/2018 AMANDA F Primary Insurance:MED CHRISTOPHER Aria Swisher [id number] [place] TPAPolicy GRE[place]: [facility] [place] Number: [id number], [place] [id number] Repository 120[address]Xrt: (330) Date:3943-49-80RA [phone] () 02151WRQNCTHHH, [place] [address]LP: CHECK WEBSITE 06/27/2018 Secondary NOT GIVENUNK Swisher Insurance:SELF PAY [facility] Number: Effective Repository Date:2018-06-27 03/01/2018 Amanda F Primary Insurance:MED JOSE ALEJANDROER Aria Swisher [id number] [place] TPAPolicy [place]: [facility] [place] Number: [id number], [place] [id number] Repository [address]Dsf: (330) Date:4150-32-30PQ [phone] () 50895QJCFQWTAO, [place] [address]UD: CHECK WEBSITE 03/01/2018 Secondary NOT GIVENUNK [place] Insurance:SELF PAY [facility] Number: Effective Repository Date:2018-03-01 11/20/2017 Amanda F Primary Insurance:MED Jose Alejandroer Aria Swisher [id number] [place] TPAPolicy GreenDOB: [facility] [place] Number: [id number], [place] [id number] Repository [address]Otq: ([phone]) Date:2955-18-45VZ [phone] () 14565HTZDRXKIP, [place] [address]MD: CHECK WEBSITE 11/20/2017 Secondary NOT GIVENUNK [place] Insurance:SELF PAY [facility] Number: Effective Repository Date:2017-10-26 11/20/2017 Amanda F Primary Insurance:MED CHRISTOPHER F Swisher [id number] [facility] [place]: [facility] [place] Number: [id number], [place] [id number] Repository [address]Qtu: (330) Date:4280-06-85AL [phone] () 02166QXBQXJTGA, [place] [address]NQ: CHECK WEBSITE 11/20/2017 Secondary NOT GIVENUNK [place] Insurance:SELF PAY [facility] Number: Effective Repository Date:2017-11-20 11/20/2017 Amanda F Primary Insurance[facility] Swisher [id number] [facility] [place] Number: [id number], [place] [id number] Repository [address]Piq: (330) Date:1268-47-26SV [phone] () 65814YYUKXBIOO, [place] [address]JO: CHECK WEBSITE 11/20/2017 Secondary NOT GIVENUNK Swisher Insurance:SELF PAY [facility] Number: Effective Repository Date:2017-11-20
== END ==
PROVIDERS: Family Provider Family Medicine; PCP Family Medicine
DX: Z12.31 Encounter for screening mammogram for malignant neoplasm of breast (principal)
CPT/HCPCS: 77063; 77067

== ENCOUNTER → 2018-09-05 07:53 | Outpatient (CLI) | payer OTHER, SELFPAY ==
--- NOTE | 2018-09-05 07:55 | US_ITS ---
STUDY: ABDOMINAL ULTRASOUND - RIGHT UPPER QUADRANT REASON FOR VISIT: Female, 53 years old. Upper abdominal pain. TECHNIQUE: Ultrasound evaluation of the right upper quadrant was performed with real-time and static chua-scale imaging. TECHNICAL QUALITY: Adequate. COMPARISON: None. FINDINGS: Liver: The liver measures 14.3 cm. There is normal echogenicity of the liver. The bile ducts are within normal limits. There is hepatic color flow. The direction of portal flow is hepatopetal. There is no demonstrated mass lesion. Gallbladder: Normal distended gallbladder. The gallbladder wall measures 2.4 mm. There is a negative sonographic Dean's sign. There is no pericholecystic fluid. Multiple echogenic shadowing calculi largely filling the gallbladder. Common Bile Duct (C.B.D.): The common bile duct measures 4.3 mm. Pancreas: Normal size of the head, body and tail of the pancreas. There is normal echogenicity of the pancreas. There is no demonstrated pancreatic mass or cyst. Right Kidney: Normal size of the right kidney. The right kidney measures 10.3 cm. Normal echotexture of the renal cortex. The right cortex measures 0.9 cm. There is no demonstrated renal mass or cyst. There is no right hydronephrosis. US/Abdomen Limited IMPRESSION: Cholelithiasis without secondary sonographic features of acute cholecystitis. The gallbladder is fairly packed with gallstones. Electronically Signed: Isai Goel MD at 16:33 EST Tel , Service support ,
== END ==
PROVIDERS: Family Provider Family Medicine; PCP Family Medicine; Referring Provider Family Medicine; Visit Provider Family Medicine
DX: R10.10 Upper abdominal pain, unspecified (principal)
CPT/HCPCS: 76705

== ENCOUNTER → 2018-11-05 09:06 | Outpatient (CLI) | payer OTHER, SELFPAY ==
[2018-10-29 10:15] VITALS: BMI 30.1
--- NOTE | 2018-11-05 09:10 | EKG12_ITS ---
Test Reason : PRE-OP Blood Pressure : / mmHG Vent. Rate : 056 BPM Atrial Rate : 056 BPM P-R Int : 144 ms QRS Dur : 082 ms QT Int : 456 ms P-R-T Axes : 078 035 050 degrees QTc Int : 440 ms Sinus bradycardia Otherwise normal ECG Confirmed by TIP PETE, ALLIE ([id number]), deputy editor in chief VIANEY QUINTANA ([id number]) on 11/06/2018 10:00:15 AM Referred By: Howie Padilla Confirmed By:ALLIE WHELAN MD
== END ==
PROVIDERS: Family Provider Family Medicine; PCP Family Medicine; Referring Provider Anesthesiology; Visit Provider Anesthesiology
DX: Z01.818 Encounter for other preprocedural examination (principal)
CPT/HCPCS: 93005

== ENCOUNTER 2018-11-07 05:40 | Day surgery (SDC) | payer OTHER, SELFPAY ==
[2018-09-26 14:00] VITALS: BMI 30.1
[2018-10-29 10:15] VITALS: BMI 30.1
[2018-11-07] VITALS (8 sets, daily range): BP systolic 110–127; BP diastolic 74–89; PULSE 55–76; RESP 16–18; TEMP 36.4–36.9; O2SAT 94–100; BMI 30.4
[2018-11-07 06:18] LABS: Internal QC Validated? YES +Cl - CLEAR BKGD; Pregnancy, Urine Negative Negative
[2018-11-07] MEDS: Cefazolin 2 GM in 0.9% Normal Saline 100 ML IV (07:24)
--- NOTE | 2018-11-07 07:30 | GALL_PTH ---
PATIENT: WEN VOGEL LOC: [facility] U#:[id number] AGE/SX: 53/F ROOM: RE11/07/[address]: Dr. Foster Jewell MD : 1965 BED: DIS: 11/07/2018 SPEC #: [id number] RECD: 11/07/18 08:52 STATUS: CATIE DALE #: [id number] DELORIS: 11/07/18 07:[address]: Foster Jewell DEPT: SURGICAL PATHOLOGY RECD BY: Mathew De Jesus ENTERED: 11/07/18 12:18 SP TYPE: CASEY MCNEILL DR: Dr. Clif Valverde MD Tissues: Gallbladder, NOS Procedures: Surgery Specimen Level III HEADER OPERATION: Laparoscopic cholecystectomy PRE-OP DIAGNOSIS: Cholelithiasis TISSUE SUBMITTED: Gallbladder MICROSCOPIC DIAGNOSIS Gallbladder, cholecystectomy: Chronic cholecystitis and cholelithiasis. SJ:anaid 11/08/18 MICROSCOPIC DESCRIPTION Slides are reviewed. GROSS DESCRIPTION Received is one container labeled with the patient's name and designated gallbladder. The specimen consists of a gallbladder measuring 9 cm in length and up to 3.5 cm in diameter. The external surface is pink-roblero, smooth and glistening for the most part. Focally it is granular, hemorrhagic and contains cautery artifact. The gallbladder contains green-yellow mucoid bile and multiple yellowish, multifaceted stones measuring in aggregate 5 x 5 x 1.5 cm and 1.5 cm in greatest dimension. The mucosa is bile-stained and without any mass lesions. The gallbladder wall measures 0.2 cm in thickness. Electrical Engineering Drafting Officer sections from the gallbladder and the cystic duct are submitted in one cassette. / SJ:rg 11/07/18 TC:3 CPT: 68284
--- NOTE | 2018-11-07 08:09 | PCM.OPRPT ---
Problem List (1) Calculus of gallbladder with chronic cholecystitis without obstruction Status: Chronic (2) Umbilical hernia Status: Acute Qualifiers: Obstruction and gangrene presence: without obstruction or gangrene Qualified Code(s): K42.9 - Umbilical hernia without obstruction or gangrene Report of Operation Date of Procedure: 11/07/18 Pre-Operative Diagnosis: 1. Chronic cholecystitis with cholelithiasis. 2. Umbilical hernia Post-Operative Diagnosis: Same Surgery/Procedure Performed:: 1. Laparoscopic cholecystectomy. 2. Incidental repair of umbilical hernia Type of Anesthesia:: General Anesthesiologist: Edenilson Ashley Specimen's removed: Gallbladder Estimated Blood Loss (mL): < 25 cc Fluids Replaced: 1200 cc Description of Procedure: Patient was brought into the operating room placed in the supine position. Under excellent general trach intubation the abdomen was sterilely prepped draped in usual fashion. Local was injected in for umbilically. Dissection was carried down to the fascia. Fascia was grasped with a [place]. Varies needle was placed inside the abdomen. The abdomen was insufflated to 15 torr. A 10/12 trocar was placed without difficulty. Patient was placed in the head up and rotated to the left position. A subxiphoid #5 trochars placed, inferior to this another #5 trocar was placed, laterally a #5 trochars placed. All these under direct visualization without injury to underlying structures. Fundus of the gallbladder was grasped retracted in cephalad direction moderate amount of adhesions were taken down with electrocautery. Infundibulum was grasped retracted laterally I dissected out the cystic duct and cystic artery and posteriorly towards the liver. Placed hemoclips proximally distally and ligated the duct I placed hemoclips proximally distally on the artery and ligated the artery deliver the gallbladder from the gallbladder bed with use of electrocautery there was no spillage of bile or stones placed a specimen a specimen bag delivered through the umbilical port without difficulty irrigated the right upper quadrant good hemostasis was noted remove the trochars under direct visualization good hemostasis was noted patient was noted to have a small umbilical defect right where the trocar was placed this was repaired with interrupted #1 Nurolon's skin incisions were closed with septicum stitches of 4-0 Monocryl Steri-Strips are applied sterile dressings were applied and the patient tolerated the procedure well. - Admit VTE Documentation VTE Present on Admission: No VTE Mechan Device Prophylaxis: SCD's VTE Pharm Prophylaxis ordered?: No Reason prophylaxis not ordered:: Treatment Not Indicated
[2018-11-07] MEDS: Bupivacaine Mpf 0.5% 30 ML VIAL (08:11)
[2018-11-07] MEDS: oxyCODONE 5 MG Tablet PO (10:15)
--- NOTE | 2018-11-07 10:44 | DCINST_ITS ---
Discharge Diet: Light diet - advance as tolerated Discharge Activity: May Not Drive - for 2-3 days or while taking narcotic pain medications., - - Do not drive, work heavy equipment or sign legal documents for 24 hours. May shower in (days): 1 - with the bandage in place. Additional Activity Instructions:: Pain medication may cause nausea. You should typically eat light foods as you take your pain medications. Pain medication may also cause constipation. If this is a problem for you, please discuss with your doctor. Call your doctor if your incision/area has: Continuous Slow Oozing, Sudden Increased Bleeding, Increased Pain/ Swelling, Increased Redness, Foul Smelling Discharge Call your doctor if you observe: Fever of 101 or Higher Suture Line Care: Avoid Pulling/Pushing, Avoid Pinching/Bending Additional Dressing/Incision Instructions:: Leave operative bandaids on for 2 days. When you remove dressing, leave Steri-Strips on until your follow-up appointment, or until the Steri-Strips fall off on their own. Allergies/Adverse Reactions: Allergies No Known Allergies Allergy (Verified 10/31/18 09:40) Medications to take at Discharge Oxycodone HCl/Acetaminophen [Percocet 5/325] 1 - 2 tab PO Q4H PRN PRN 6 Days #30 tab 11/07/18 The following prescriptions were given: Oxycodone HCl/Acetaminophen [Percocet 5/325] 1 - 2 tab PO Q4H PRN PRN 6 Days #30 tab PRN Reason: Pain Primary Care Physician: Clif Valverde MD [Primary Care Provider] - Test Results: Test results from this visit will be discussed in further detail at your follow- up appointment, if applicable. Please Follow Up With: Foster Jewell MD - Please call [phone] to schedule an appointment. When: 7 days after your surgery.
== END 2018-11-07 11:43 | disposition home or self-care (01) ==
LOC: SDC 05:42 → AC 05:43
PROVIDERS: Anesthesiology; Family Provider Family Medicine; PCP Family Medicine; Referring Provider Surgery; Visit Provider Surgery
PROC: (CPT 47562; principal; 2018-11-07 07:10)
DX: K80.10 Calculus of gallbladder with chronic cholecystitis without obstruction (principal); K42.9 Umbilical hernia without obstruction or gangrene; Z86.718 Personal history of other venous thrombosis and embolism
CPT/HCPCS: 47562; 49585; 81025; 88304; J7120; J2405

== ENCOUNTER → 2019-09-01 07:42 | Outpatient (CLI) | payer OTHER, SELFPAY ==
[2019-08-12 16:07] VITALS: BMI 30.4
--- NOTE | 2019-09-01 07:44 | BI_ITS ---
MAMMOGRAPHY - BILATERAL SCREENING REASON FOR EXAM: Female, 54 years old. Routine annual screening examination. PERTINENT HISTORY: Non-contributory. TECHNIQUE: Digital bilateral breast seng (3D mammographic acquisition) in the CC and MLO projections. 2-D mediolateral oblique (MLO) and craniocaudad (CC) views of both breasts were obtained. CAD: Full Field Digital Mammography with Computer Added Detection was performed. COMPARISON: Comparison is made with prior study dated August 28, 2018 and July 17, 2017. FINDINGS: Breast Composition: The breasts are heterogeneously dense, which may obscure small masses. Irregular density seen on the mediolateral oblique view of the left breast most likely representing superimposition of tissue. The patient will be recalled for additional views including 90 degree lateral and compression spot views. Stable benign-appearing bilateral axillary lymph nodes. No other significant abnormalities are identified. BI/SCREEN MAMM (CAD) W/SENG BILAT IMPRESSION: New irregular-appearing density in the central portion of the left breast on the mediolateral oblique view. The patient will be recalled for additional views including 90 degree lateral and compression spot views of the left breast. Recall Side: Left Breast ASSESSMENT CATEGORY: BIRADS Category 0: Incomplete. Need additional imaging evaluation. A letter regarding these results will be sent to the patient by the facility within 30 days. Approximately 10% of breast cancers are not detected by mammography. A normal mammogram should not delay biopsy of a clinically suspicious abnormality. [id number] Electronically Signed: Jona Duque, at 8:55 EST , Service support ,
== END ==
PROVIDERS: Family Provider Family Medicine; PCP Family Medicine; Referring Provider Obstetrics & Gynecology; Visit Provider Obstetrics & Gynecology
DX: Z12.31 Encounter for screening mammogram for malignant neoplasm of breast (principal)
CPT/HCPCS: 77063; 77067

== ENCOUNTER → 2019-09-03 14:16 | Outpatient (CLI) | payer OTHER, SELFPAY ==
[2019-08-12 16:07] VITALS: BMI 30.4
--- NOTE | 2019-09-03 14:18 | BI_ITS ---
MAMMOGRAPHY - UNILATERAL DIAGNOSTIC: LEFT BREAST REASON FOR EXAM: Female, 54 years old. Abnormal screening mammogram. PERTINENT HISTORY: Non-contributory. TECHNIQUE: Spot compression views were obtained. CAD: Full Field Digital Mammography with Computer Added Detection was performed. COMPARISON: Comparison is made with prior mammogram dated September 01, 2019. FINDINGS: Breast Composition: The breasts are heterogeneously dense, which may obscure small masses. Residual asymmetry in the retroareolar region of the breast. Correlation with ultrasound is recommended. No other significant abnormalities are identified. BI/DIAG MAMM W/CAD, UNILAT IMPRESSION: Persistent asymmetrical density in the retroareolar region of the breast. Correlation with ultrasound is recommended. ASSESSMENT CATEGORY: BIRADS Category 0: Incomplete. Need additional imaging evaluation. A letter regarding these results will be sent to the patient by the facility within 30 days. Approximately 10% of breast cancers are not detected by mammography. A normal mammogram should not delay biopsy of a clinically suspicious abnormality. Electronically Signed: Jona Duque, at 15:26 EST , Service support ,
--- NOTE | 2019-09-03 14:18 | US_ITS ---
STUDY: ULTRASOUND BREAST - LEFT REASON FOR EXAM: Female, 54 years old. Abnormal screening mammogram. TECHNIQUE: Axial and longitudinal images of the LEFT breast were performed with a high resolution ultrasound transducer. # OF IMAGES: 41 COMPARISON: Comparison is made with prior mammogram done earlier in the day. Comparison is also made to a prior sonogram of the left breast dated March 06, 2016. FINDINGS: LEFT Breast: A 5 mm x 4 mm x 2 mm well-defined hypoechoic nodule with central echogenic hilum is seen at the 2:00 position of the breast at 4 cm from nipple. This is indicative of a benign appearing lymph node. There is also evidence of mildly dilated retroareolar ducts. US/Breast Limited Unilateral IMPRESSION: Mildly dilated retroareolar ducts. Small intramammary lymph node. Routine annual mammographic follow-up is recommended. ASSESSMENT CATEGORY: BIRADS Category 2: Benign. A letter regarding these results will be sent to the patient by the facility within 30 days. Electronically Signed: Jona Duque, at 15:28 EST , Service support ,
== END ==
PROVIDERS: Family Provider Family Medicine; PCP Family Medicine; Referring Provider Obstetrics & Gynecology; Visit Provider Obstetrics & Gynecology
DX: R92.2 Inconclusive mammogram (principal)
CPT/HCPCS: 76642; 77065

== ENCOUNTER → 2021-01-27 15:33 | Outpatient (CLI) | payer OTHER, SELFPAY ==
[2019-08-12 16:07] VITALS: BMI 30.4
--- NOTE | 2021-01-27 15:37 | BI_ITS ---
MAMMOGRAPHY - BILATERAL SCREENING REASON FOR EXAM: Female, 55 years old. Routine annual screening examination. PERTINENT HISTORY: Non-contributory. TECHNIQUE: Digital bilateral breast seng (3D mammographic acquisition) in the CC and MLO projections. 2-D mediolateral oblique (MLO) and craniocaudad (CC) views of both breasts were obtained. CAD: Full Field Digital Mammography with Computer Added Detection was performed. COMPARISON: Comparison is made with prior study dated 09/01/2019 and 08/28/2018. FINDINGS: Breast Composition: The breasts are heterogeneously dense, which may obscure small masses. There are no dominant masses or suspicious calcifications. No other significant abnormalities are identified. There has been no significant change since the prior study. BI/SCRN MAMM (CAD)W/SENG BILAT IMPRESSION: Stable bilateral screening mammogram. Yearly follow-up mammogram recommended. (A) ASSESSMENT CATEGORY: BIRADS Category 1: Negative. A letter regarding these results will be sent to the patient by the facility within 30 days. Approximately 10% of breast cancers are not detected by mammography. A normal mammogram should not delay biopsy of a clinically suspicious abnormality. [id number] Electronically Signed: Jona Duque MD at 8:54 EDT , Service support ,
== END ==
PROVIDERS: PCP Family Medicine; Referring Provider Obstetrics & Gynecology; Visit Provider Obstetrics & Gynecology
DX: Z12.31 Encounter for screening mammogram for malignant neoplasm of breast (principal)
CPT/HCPCS: 77063; 77067

== ENCOUNTER → 2021-03-28 12:32 | Outpatient (CLI) | payer OTHER, SELFPAY ==
[2019-08-12 16:07] VITALS: BMI 30.4
--- NOTE | 2021-03-28 12:35 | RAD_ITS ---
STUDY: X-RAY - RIGHT FOOT CLINICAL: Female, 56 years old. Foot pain. TECHNIQUE: 3 view(s) of the foot. COMPARISON: None. FINDINGS: Small superior calcaneal spur. Moderate arthrosis of the midfoot. Mild arthrosis of the MTP and IP joints, most marked at the first MTP joint. The soft tissue structures are unremarkable. RAD/Foot min 3 Views IMPRESSION: Degenerative changes as described. No acute finding. Electronically Signed: Naman Perdomo MD at 9:47 EDT , Service support ,
== END ==
PROVIDERS: PCP Family Medicine; Referring Provider Family Medicine; Visit Provider Family Medicine
DX: M79.671 Pain in right foot (principal)
CPT/HCPCS: 73630

== ENCOUNTER → 2021-04-26 12:00 | Outpatient (CLI) | payer OTHER, SELFPAY ==
[2019-08-12 16:07] VITALS: BMI 30.4
[2021-04-26 15:18] LABS: Absolute Lymphocyte Count 1.41 X10^3/uL (0.83-4.51); Absolute Neutrophil Count 3.4 X10^3/uL (2.0-7.7); Basophil# 0.04 X10^3/uL; Basophil% 0.7 % (0-1); Eosinophil# 0.09 X10^3/uL; Eosinophils% 1.7 % (0-5); Hematocrit 45.4 % (37-47); Hemoglobin 14.3 g/dL (12.0-15.0); Lymphocyte # 1.41 X10^3/ul (0.83-4.51); Lymphocyte % 25.9 % (19-41); Mean Corp Hgb Conc 31.5 g/dL (32-36); Mean Corpuscular Hgb 28.2 pg (27.0-32.0); Mean Corpuscular Volume 89.5 fL (81-99); Mean Platelet Vol. 10.8 fl (6.2-12.0); Monocyte# 0.45 X10^3/uL; Monocyte% 8.3 % (0-10); NRBC Flagged by Analyzer 0 % (0-5); Neutrophil # 3.43 X10^3/uL (2.7-7.7); Neutrophil % 62.8 % (47-70); Platelet Count 225 K/mm3 (150-450); RBC Distribution Width CV 13.4 % (11.6-14.6); RBC Distribution Width SD 43.7 fl (35.1-43.9); Red Blood Count 5.07 M/mm3 (4.2-5.4); White Blood Count 5.5 K/mm3 (4.4-11.0)
[2021-04-26 15:32] LABS: Erythrocyte Sedimentation Rate 5 mm/hr (0-30)
[2021-04-26 15:40] LABS: Vitamin D,25 Hydroxy 26.4 ng/mL
[2021-04-26 15:51] LABS: ALB/GLOB Ratio 1.1 RATIO (0.9-2.4); AST(SGOT) 14 U/L (15-37); Alanine Aminotransfer ALT/SGPT 24 U/L (13-56); Albumin, Serum 4.1 g/dL (3.2-5.0); Alkaline Phosphatase 74 U/L (45-117); Anion Gap 6 (5-15); BUN 11 mg/dL (7-18); BUN/Creat Ratio 15.6 RATIO (10-20); CRP < 2.90 mg/L (0.0-3.0); Calcium,Total 9.1 mg/dL (8.5-10.1); Chloride 106 mmol/L (98-107); EST Glomerular Filtration Rate 91 mL/min (>60); Est Glom Filt Rate - Afr Amer 111 mL/min (>60); Globulin 3.6 g/dL (2.2-4.2); Glucose 89 mg/dL (74-106); Protein, Total 7.7 g/dL (6.4-8.2); Rheumatoid Factor < 10.0 IU/mL (<15); Sodium Level 141 mmol/L (136-145); Uric Acid 4.4 mg/dL (2.6-6.0)
[2021-04-28 20:15] LABS: ANTINUCLEAR ANTIBODIES DIRECT Negative (Negative)
[2021-04-29 12:49] LABS: CCP IgG Antibodies 8 units (0-19)
== END ==
PROVIDERS: PCP Family Medicine; Referring Provider Podiatrist; Visit Provider Podiatrist
DX: M19.071 Primary osteoarthritis, right ankle and foot (principal)
CPT/HCPCS: 36415; 80053; 82306; 84550; 85025; 85652; 86038; 86140; 86200; 86431

== ENCOUNTER → 2022-03-07 | Outpatient (CLI) | payer BC, SELFPAY ==
--- NOTE | 2022-03-07 10:29 | BI_ITS ---
MAMMOGRAPHY - BILATERAL SCREENING REASON FOR EXAM: Female, 57 years old. Routine annual screening examination. PERTINENT HISTORY: Non-contributory. TECHNIQUE: Digital bilateral breast seng (3D mammographic acquisition) in the CC and MLO projections. 2-D mediolateral oblique (MLO) and craniocaudad (CC) views of both breasts were obtained. CAD: Full Field Digital Mammography with Computer Added Detection was performed. COMPARISON: Screening mammogram from 01/27/2021, 09/01/2019, 08/28/2018. Left breast diagnostic mammogram from 09/03/2019. Left breast diagnostic ultrasound from 09/03/2019. FINDINGS: Breast Composition: The breasts are heterogeneously dense, which may obscure small masses. There are no dominant masses or suspicious calcifications. No other significant abnormalities are identified. There has been no significant change since the prior study. BI/SCRN MAMM (CAD)W/SENG BILAT IMPRESSION: Stable bilateral screening mammogram. Yearly follow-up mammogram recommended. (A) ASSESSMENT CATEGORY: BIRADS Category 1: Negative. A letter regarding these results will be sent to the patient by the facility within 30 days. Approximately 10% of breast cancers are not detected by mammography. A normal mammogram should not delay biopsy of a clinically suspicious abnormality. [id number] Electronically Signed: Clarence Francis, at 16:01 EDT ,
== END | disposition home or self-care (01) ==
LOC: OPBI 10:27
PROVIDERS: PCP Obstetrics & Gynecology; Visit Provider Obstetrics & Gynecology
DX: Z12.31 Encounter for screening mammogram for malignant neoplasm of breast (principal)
CPT/HCPCS: 77063; 77067

== ENCOUNTER → 2022-04-25 | Outpatient (CLI) | payer BC, SELFPAY ==
--- NOTE | 2022-04-25 12:57 | RAD_ITS ---
STUDY: X-RAY CHEST REASON FOR EXAM: Female, 57 years old. Chest pain TECHNIQUE: PA and lateral views of the chest. COMPARISON: None. FINDINGS: No confluent airspace opacity. Linear atelectasis versus scar at the right anterior lung base. No pleural effusion or pneumothorax. Normal size heart. Normal mediastinum and maxime. Normal visualized pulmonary arteries. Normal visualized aortic arch and descending thoracic aorta. Normal visualized thoracic spine. Normal visualized ribs, clavicles, and shoulders. There is no demonstrated abnormality of the visualized soft tissue structures of the upper abdomen. RAD/Chest PA and Lateral IMPRESSION: Linear atelectasis versus scar formation at the right anterior lung base, with no acute cardiopulmonary disease Electronically Signed: Scott Harris MD at 4:52 EDT ,
[2022-04-25 15:20] LABS: Absolute Lymphocyte Count 1.73 X10^3/uL (0.83-4.51); Basophil# 0.04 X10^3/uL; Basophil% 0.6 % (0-1); Eosinophil# 0.11 X10^3/uL; Eosinophils% 1.7 % (0-5); Hematocrit 44.9 % (37-47); Hemoglobin 14.8 g/dL (12.0-15.0); Lymphocyte # 1.73 X10^3/ul (0.83-4.51); Lymphocyte % 27.2 % (19-41); Mean Corpuscular Hgb 28.8 pg (27.0-32.0); Mean Corpuscular Volume 87.5 fL (81-99); Mean Platelet Vol. 10.7 fl (6.2-12.0); Monocyte# 0.49 X10^3/uL; Monocyte% 7.7 % (0-10); NRBC Flagged by Analyzer 0 % (0-5); Neutrophil # 3.97 X10^3/uL (2.7-7.7); Neutrophil % 62.6 % (47-70); Platelet Count 207 K/mm3 (150-450); RBC Distribution Width CV 13.3 % (11.6-14.6); RBC Distribution Width SD 42.8 fl (35.1-43.9); Red Blood Count 5.13 M/mm3 (4.2-5.4); White Blood Count 6.4 K/mm3 (4.4-11.0)
[2022-04-25 15:44] LABS: ALB/GLOB Ratio 1.1 RATIO (0.9-2.4); AST(SGOT) 11 U/L (15-37); Alanine Aminotransfer ALT/SGPT 23 U/L (13-56); Alkaline Phosphatase 53 U/L (45-117); Anion Gap 4 (5-15); BUN 12 mg/dL (7-18); BUN/Creat Ratio 15.2 RATIO (10-20); Chloride 106 mmol/L (98-107); Creatinine, Serum 0.79 mg/dL (0.55-1.02); EST Glomerular Filtration Rate 80 mL/min (>60); Est Glom Filt Rate - Afr Amer 97 mL/min (>60); Globulin 3.7 g/dL (2.2-4.2); Glucose 96 mg/dL (74-106); Potassium 4.3 mmol/L (3.5-5.1); Protein, Total 7.7 g/dL (6.4-8.2); Sodium Level 139 mmol/L (136-145); Thyroid Stim Hormone (TSH) 1.35 uIU/mL (0.358-3.74)
== END | disposition home or self-care (01) ==
LOC: MTLAB 12:46
PROVIDERS: PCP Family Medicine; Referring Provider Nurse Practitioner Family; Visit Provider Nurse Practitioner Family
DX: R07.9 Chest pain, unspecified (principal)
CPT/HCPCS: 36415; 71046; 80053; 84443; 85025

== ENCOUNTER → 2022-08-08 | Outpatient (CLI) | payer BC, SELFPAY ==
--- NOTE | 2022-08-08 13:14 | BD_ITS ---
STUDY: DUAL ENERGY X-RAY ABSORPTIOMETRY / DXA REASON FOR EXAM: Female, 57 years old. [id number] TECHNIQUE: Bone Mineral Density (BMD) measurements of lumbar spine and bilateral hips were obtained. COMPARISON: Comparison is made with prior study dated 07/25/2017. FINDINGS: Lumbar Spine (L1-L4): g/cm2 (0.844) / T-score (-1.6) / Z-score (-0.4) Findings are suggestive of osteopenia with a moderate fracture risk. Left Femur Total: g/cm2 (0.805) / T-score (-1.1) / Z-score (-0.3) Left Femoral Neck: g/cm2 (0.718) / T-score (-1.2) / Z-score (0.0) Right Femur Total: g/cm2 (0.725) / T-score (-1.8) / Z-score (-1.0) Right Femoral Neck: g/cm2 (0.645) / T-score (-1.8) / Z-score (-0.7) The T-Scores on the most recent prior examination were: Lumbar Spine (L1-L4): There has been worsening of bone density since the previous examination. Left Femur Total: which represents a worsening of 9.2%. Right Femur Total: which represents a worsening of 12.7%. BD/Dexa Bone Density Study IMPRESSION: The patient is considered osteopenic as outlined below according to World [employer] Organization (WHO) criteria with a moderate fracture risk. There has been worsening of bone density since the previous examination. Reference Information: The T-score is the number of standard deviations above or below the standard which is normal for young adults at their peak bone mineral density. The World Health Organization (WHO) interprets the T-scores as follows: Above -1 Normal bone density Between -1 and -2.5 Osteopenia Equal to / or below -2.5 Osteoporosis As a practical clinical guideline, osteopenia may be graded as follows: Mild -1 through -1.5 Moderate -1.6 through -2.0 Severe -2.1 through -2.4 The Z-score is the number of standard deviations above or below age-matched controls. A Z-score of less than -1.5 would be considered abnormal. References: 1. NIH Osteoporosis and Related Bone Diseases www osteo.org 2. International Society for Clinical Densitometry www iscd.org 3. National Osteoporosis Foundation www nof.org Electronically Signed: Jona Duque MD at 10:12 EST ,
== END | disposition home or self-care (01) ==
LOC: OPBD 13:09
PROVIDERS: PCP Family Medicine; Referring Provider Obstetrics & Gynecology; Visit Provider Obstetrics & Gynecology
DX: N95.1 Menopausal and female climacteric states (principal)
CPT/HCPCS: 77080

== ENCOUNTER → 2022-08-28 | Outpatient (CLI) | payer BC, SELFPAY ==
[2022-08-28 10:32] LABS: Vitamin D,25 Hydroxy 36.2 ng/mL
[2022-08-28 10:38] LABS: Cholesterol 186 mg/dL (200); High Density Lipoprotein 64 mg/dL; Triglycerides 107 mg/dL; Very Low Density Lipoprotein 21 mg/dL (5-40)
== END | disposition home or self-care (01) ==
PROVIDERS: PCP Family Medicine; Referring Provider Obstetrics & Gynecology; Visit Provider Obstetrics & Gynecology
DX: Z00.00 Encounter for general adult medical examination without abnormal findings (principal); M85.88 Other specified disorders of bone density and structure, other site
CPT/HCPCS: 36415; 80061; 82306

== ENCOUNTER → 2023-05-23 | Outpatient (CLI) | payer OTHER, SELFPAY ==
--- NOTE | 2023-05-23 07:55 | BI_ITS ---
MAMMOGRAPHY - BILATERAL SCREENING REASON FOR EXAM: Female, 58 years old. Routine annual screening examination. PERTINENT HISTORY: Non-contributory. TECHNIQUE: Digital bilateral breast seng (3D mammographic acquisition) in the CC and MLO projections. 2-D mediolateral oblique (MLO) and craniocaudad (CC) views of both breasts were obtained. CAD: Full Field Digital Mammography with Computer Added Detection was performed. COMPARISON: Comparison is made with prior study March 07, 2022 and January 27, 2021. FINDINGS: Breast Composition: The breasts are heterogeneously dense, which may obscure small masses. There are no dominant masses or suspicious calcifications. Stable fat-containing bilateral axillary lymph nodes. No other significant abnormalities are identified. There has been no significant change since the prior study. BI/SCRN MAMM (CAD)W/SENG BILAT IMPRESSION: Stable bilateral screening mammogram. Yearly follow-up mammogram recommended. (A) ASSESSMENT CATEGORY: BIRADS Category 2: Benign. A letter regarding these results will be sent to the patient by the facility within 30 days. Approximately 10% of breast cancers are not detected by mammography. A normal mammogram should not delay biopsy of a clinically suspicious abnormality. [id number] Electronically Signed: Jona Duque MD at 8:51 EDT ,
== END | disposition home or self-care (01) ==
LOC: OPBI 07:54
PROVIDERS: PCP Family Medicine; Referring Provider Obstetrics & Gynecology; Visit Provider Obstetrics & Gynecology
DX: Z12.31 Encounter for screening mammogram for malignant neoplasm of breast (principal)
CPT/HCPCS: 77063; 77067

== ENCOUNTER → 2024-08-12 | Outpatient (CLI) | payer OTHER, SELFPAY ==
--- NOTE | 2024-08-12 16:23 | BI_ITS ---
MAMMOGRAPHY - BILATERAL SCREENING 3-D TOMOSYNTHESIS REASON FOR EXAM: Female, 59 years old. Routine screening PERTINENT HISTORY: No significant family history. TECHNIQUE: 2-D mammograms and 3-D Tomosynthesis of the breast (s) were performed. CAD was performed. COMPARISON: 01/27/2021 FINDINGS: The breast composition is composed of scattered fibroglandular density. Scattered benign calcifications are seen. No dense spiculated masses or suspicious microcalcifications are identified. No architectural distortion is identified. There is no skin thickening or retraction. There has been no significant change since the prior study. BI/SCRN MAMM (CAD)W/SENG BILAT IMPRESSION: No mammographic signs of malignancy. Routine yearly mammograms recommended. ASSESSMENT CATEGORY: BIRADS Category 1: Negative. A letter regarding these results will be sent to the patient by the facility within 30 days. FOLLOW UP RECOMMENDATION: Yearly follow up mammogram recommended. (A) Approximately 10% of breast cancers are not detected by mammography. A normal mammogram should not delay biopsy of a clinically suspicious abnormality. Electronically Signed: Saman Ramos MD at 10:37 EST ,
== END | disposition home or self-care (01) ==
LOC: OPBI 16:17
PROVIDERS: PCP Family Medicine
DX: Z12.31 Encounter for screening mammogram for malignant neoplasm of breast (principal)
CPT/HCPCS: 77063; 77067

== ENCOUNTER → 2025-03-25 | Outpatient (CLI) | payer OTHER, SELFPAY ==
[2025-03-25 11:54] LABS: AST(SGOT) 22 U/L (<=31); Alanine Aminotransfer ALT/SGPT 22 U/L (<=34); Albumin, Serum 4.4 g/dL (3.4-4.8); Alkaline Phosphatase 52 U/L (35-104); Anion Gap 10 (5-15); BUN 11 mg/dL (4-19); BUN/Creat Ratio 15.1 RATIO (10-20); Calcium,Total 9.3 mg/dL (7.6-11.0); Carbon Dioxide 25.2 mmol/L (21.0-32.0); Chloride 106 mmol/L (98-108); Cholesterol 192 mg/dL (<=200); Globulin 2.8 g/dL (2.2-4.2); Glucose 98 mg/dL (70-99); Low Density Lipoprotein Calc. 114 mg/dL; Magnesium 2.4 mg/dL (1.5-2.2); Potassium 4.5 mmol/L (3.3-5.1); Triglycerides 107 mg/dL; Very Low Density Lipoprotein 21 mg/dL (5-40); Vitamin D,25 Hydroxy 38.7 ng/mL (30-100); cholesterol:hdl ratio screen 3.40
== END | disposition home or self-care (01) ==
LOC: MTLAB 09:26
PROVIDERS: PCP Family Medicine
DX: Z00.00 Encounter for general adult medical examination without abnormal findings (principal)
CPT/HCPCS: 36415; 80053; 80061; 82306; 83036; 83735; 84443

== ENCOUNTER → 2025-07-27 | Outpatient (CLI) | payer OTHER, SELFPAY ==
[2025-07-31 15:08] LABS: HPV APTIMA, High Risk Positive (Negative)
== END | disposition home or self-care (01) ==
LOC: LABSPEC 12:04
PROVIDERS: PCP Family Medicine
DX: Z12.4 Encounter for screening for malignant neoplasm of cervix (principal)
CPT/HCPCS: 87624; 88175; G0145

== ENCOUNTER → 2025-08-17 | Outpatient (CLI) | payer OTHER, SELFPAY ==
--- NOTE | 2025-08-17 08:50 | BI_ITS ---
EXAM: SCRN MAMM (CAD)W/SENG BILAT DATE: 08/17/2025 CLINICAL HISTORY: F, Age 60 y/o , SCREENING TECHNIQUE: Procedure Code: [id number] Modality: MG Procedure: SCRN MAMM (CAD)W/SENG BILAT COMPARISON: Prior exam(s) dated 08/12/2024, 05/23/2023, and 03/07/2022. FINDINGS: TISSUE DENSITY: The breasts are almost entirely fatty. Bilateral Breast Mammographic Findings: Benign-appearing round microcalcifications are seen in both breasts. Stable nodular lobulated masslike densities and partially obscured isodense masses are seen in both breast. These are best visualized on the seng images. No suspicious masses, suspicious cluster of microcalcifications, architectural distortion or secondary signs of malignancy is identified in either breast. BI/SCRN MAMM (CAD)W/SENG BILAT IMPRESSION: Benign screening mammogram. OVERALL FINAL ASSESSMENT BI-RADS 2: BENIGN RECOMMENDATION: Routine annual follow-up in 1 Year Additional Recommendation none A letter with findings and recommendations will be mailed to the patient. Reading Location: [id number]
== END | disposition home or self-care (01) ==
PROVIDERS: PCP Family Medicine
DX: Z12.31 Encounter for screening mammogram for malignant neoplasm of breast (principal)
CPT/HCPCS: 77063; 77067